=== PATIENT | female | born 1960 | race Caucasian/White ===

== ENCOUNTER 2023-04-12 10:41 | Outpatient (CLI) | payer OTHER ==
[~2023-04-12 10:41] MED LIST: CLONAZEPAM0.5 MG; LAMICTAL5 MG
== END 2023-04-12 10:48 | disposition home or self-care (01) ==
LOC: SONOGRAMA 10:41
DX: M25.662 Stiffness of left knee, not elsewhere classified (principal)

== ENCOUNTER 2024-01-24 08:31 | Outpatient (CLI) | payer OTHER | END 2024-01-24 08:45 | disposition home or self-care (01) | LOC: SONOGRAMA 08:31 | DX: R10.13 Epigastric pain (principal); R10.12 Left upper quadrant pain; R19.06 Epigastric swelling, mass or lump; R10.32 Left lower quadrant pain; M54.51 Vertebrogenic low back pain ==

== ENCOUNTER 2024-03-23 08:13 | Outpatient (CLI) | payer OTHER | END 2024-03-23 08:23 | disposition home or self-care (01) | LOC: TOM 08:13 | DX: R10.12 Left upper quadrant pain (principal) ==